=== PATIENT | male | born 1995 | race Hispanic/Latino ===

== ENCOUNTER 2019-07-04 14:50 | Emergency (ER) | payer OTHER, SELFPAY ==
--- NOTE | 2019-07-04 15:30 | CT ---
Exam: Head CT without contrast HISTORY: Right periorbital trauma. Bruising. COMPARISON: none FINDINGS: Hemorrhage: No intraparenchymal hemorrhage or extra-axial hematoma. Brain parenchyma: Cortical chiu-white matter differentiation is preserved. No mass effect or midline shift. Basilar cisterns are patent. Ventricular system: Ventricles and sulci are patent and symmetric. Calvarium: Intact. Sinuses and mastoid air cells: Adequate aeration. IMPRESSION: No intracranial post traumatic sequelae.
--- NOTE | 2019-07-04 15:52 | CT ---
CT FACIAL BONES: 07/04/19 INDICATIONS: Injury over right eye. FINDINGS: Nasal bones appear intact. Orbits appear intact. Lamina papyracea intact. The paranasal sinuses and mastoids are clear. Zygoma are intact. The maxilla appears intact. Mandible is intact. Mild soft tissue swelling over the right orbit. IMPRESSION: No evidence of facial bone fracture. POS: [facility]
== END 2019-07-04 16:00 | disposition home or self-care (01) ==
LOC: ERS 14:50
DX: S01.111A Laceration without foreign body of right eyelid and periocular area, initial encounter (principal); W19.XXXA Unspecified fall, initial encounter
CPT/HCPCS: 70450; 70486